=== PATIENT | female | born 1945 | race American Indian/Alaskan Native ===

== ENCOUNTER 2018-07-04 08:58 | Outpatient (CLI) | payer MEDICARE, OTHER ==
[2018-07-04 09:33] LABS: Hematocrit 33.3 % (30.3-42.9); Hemoglobin 11.5 gm/dl (10.1-14.3); Mean Corpuscular HGB Conc 35 % (30-34); Mean Corpuscular Volume 96 fl (79-97); Platelet Count 249 K/mm3 (140-440); Red Blood Count 3.47 M/mm3 (3.65-5.03)
[2018-07-04 09:34] LABS: Red Cell Distribution Width 20.6 % (13.2-15.2)
[2018-07-04 09:49] LABS: Alanine Aminotransferase 6 units/L (7-56); Albumin 3.5 g/dL (3.9-5); BUN/Creatinine Ratio 9; Blood Urea Nitrogen 8 mg/dL (7-17); Calcium 9.1 mg/dL (8.4-10.2); Hemolysis Index 6
--- NOTE | 2018-07-04 10:09 | XRay Report ---
Chest 2 views: History: COPD. Findings Normal cardiomediastinal silhouette. Trachea is midline. Peribronchial cuffing but no consolidation mass or pleural effusion. There is suspicious nodule identified at the retrocardiac region left lower lobe. Not seen on lateral radiograph. Recommend CT scan for further evaluation. Impression: Peribronchial cuffing probably related to chronic bronchitis. A suspicious nodule in left lower lobe. Recommend CT scan. The
--- NOTE | 2018-07-04 10:32 | Cat Scan Report ---
CT scan of chest with IV contrast: History: COPD. Findings: Atherosclerotic aorta without definite evidence of aneurysm. No evidence of pulmonary embolism. No pleural or pericardial effusion. Borderline mediastinal lymph nodes. Subpleural blebs bilaterally including in the region of the mediastinum with few central lung cysts. No mass. No consolidation. Impression Borderline mediastinal lymph nodes. Lung changes suggestive of COPD. Incidentally noted cysts right and left kidney.
--- NOTE | 2018-07-04 12:51 | Ultrasound Report ---
Renal sonogram: History: Chronic kidney disease stage III. Findings: Right kidney 9.7 x 4.7 x 4.9 cm. Cortical thickness 1.4 cm. Cysts in the upper pole of right kidney measures 1 x 0.8 x 1.2 cm. Left kidney 10.3 x 4.9 x 5.7 cm. Cortical thickness 1.2 cm. Cysts in the upper pole measures 1.2 x 0.9 x 1 cm cyst at the midpole measures 3.7 x 3.2 x 2.8 cm. No evidence of hydronephrosis. Impression: Bilateral renal cysts.
== END 2018-07-04 08:59 | disposition home or self-care (01) ==
LOC: CT 08:58
PROVIDERS: ATTEND Internal Medicine
DX: N28.1 Cyst of kidney, acquired (principal); J44.9 Chronic obstructive pulmonary disease, unspecified; I12.9 Hypertensive chronic kidney disease with stage 1 through stage 4 chronic kidney disease, or unspecified chronic kidney disease; N18.3 Chronic kidney disease, stage 3 (moderate); J90 Pleural effusion, not elsewhere classified
CPT/HCPCS: 36415; 71046; 71260; 76770; 80053; 85027